=== PATIENT | male | born 1975 | race Caucasian/White ===

== ENCOUNTER 2021-09-06 20:13 | Emergency (ER) | payer OTHER ==
[~2021-09-06] VITALS: Ht 172.7 cm; Wt 88.5 kg
[2021-09-06] MEDS ORDERED: ALIVE (21:20)
[2021-09-06] MEDS ORDERED: CRESTOR10 MG (21:25)
[2021-09-06] MEDS ORDERED: SYNTHROID175 MCG (21:25)
[2021-09-07] MEDS ORDERED: NORFLEX100MG PO (00:10)
== END 2021-09-07 01:16 | disposition home or self-care (01) ==
LOC: ER 20:13
DX: S40.011A Contusion of right shoulder, initial encounter (principal); M25.511 Pain in right shoulder; W22.8XXA Striking against or struck by other objects, initial encounter; Y93.89 Activity, other specified; Y92.89 Other specified places as the place of occurrence of the external cause; Y99.8 Other external cause status